=== PATIENT | female | born 2000 | race African-American/Black ===

== ENCOUNTER 2018-10-17 21:51 | Emergency (ER) | payer OTHER ==
[~2018-10-17] VITALS: Ht 157.5 cm; Wt 50.0 kg
[2018-10-17] MEDS ORDERED: LIDOCAINE 2% MDV 20 ML VIAL SC ONE (23:30)
[2018-10-18 00:16] VITALS: BP 110/69
[2018-10-18] MEDS ORDERED: CEPHALEXIN 500 MG CAP PO ONE (00:30)
[2018-10-18] MEDS ORDERED: KEFL500C17 PO (00:31)
[2018-10-18] MEDS ORDERED: ACETAMINOPHEN 500 MG TAB PO ONE (00:45)
== END 2018-10-18 00:41 | disposition home or self-care (01) ==
LOC: M ED 21:51
DX: S01.81XA Laceration without foreign body of other part of head, initial encounter (principal); W18.2XXA Fall in (into) shower or empty bathtub, initial encounter; Y92.012 Bathroom of single-family (private) house as the place of occurrence of the external cause